=== PATIENT | male | born 1950 | race Caucasian/White ===

== ENCOUNTER 2018-05-24 11:45 | Inpatient (IN) | payer OTHER ==
[2018-05-24] MEDS: SOD CHLORIDE 0.9% 500 ML IV (12:46)
[2018-05-24] MEDS: PIPER-TAZO 3.375 GM IV (PMX) 100 ML IVPB ×2 (12:46→20:47)
[2018-05-24] MEDS: KETOROLAC 15 MG INJ IV (12:46)
[2018-05-24 12:57] LABS: ADD MAN DIFF? NO
[2018-05-24 13:05] LABS: WHITE BLOOD COUNT 12.6 10^3/ul (4.8-10.8)
[2018-05-24 13:05] LABS: BASOPHILS % 0.3 % (0.0-2.0); EOSINOPHILS # 0.2 10^3/ul (0.0-0.5); EOSINOPHILS % 1.2 % (0.0-7.0); HEMATOCRIT 38.7 % (42.0-52.0); HEMOGLOBIN 12.8 g/dl (14.0-18.0); LYMPHOCYTES % 16.3 % (15.0-51.0); MEAN CORPUSCULAR HEMOGLOBIN 28.6 pg (29.0-33.0); MEAN CORPUSCULAR HGB CONC 33.1 g/dl (32.0-37.0); MEAN CORPUSCULAR VOLUME 86.6 fl (82.0-101.0); MONOCYTE # 1.1 10^3/ul (0.3-0.9); MONOCYTES % 8.5 % (0.0-11.0); NEUTROPHIL # 9.2 10^3/ul (1.6-7.5); NEUTROPHILS % 73.4 % (39.0-77.0); PLATELET COUNT 335 10^3/UL (140-415); RED BLOOD COUNT 4.47 10^6/ul (4.70-6.10); RED CELL DISTRIBUTION WIDTH 12.5 % (11.5-14.5)
[2018-05-24 13:23] LABS: ALBUMIN 4.4 g/dl (3.3-4.9); ALBUMIN/GLOBULIN RATIO 1.12; ALKALINE PHOSPHATASE 108 IU/L (42-121); ANION GAP 9 (5-13); ASPARTATE AMINO TRANSFERASE 24 IU/L (15-46); BILIRUBIN,INDIRECT 0.4 mg/dl (0-1.1); BILIRUBIN,TOTAL 0.4 mg/dl (0.2-1.3); BLOOD UREA NITROGEN 22 mg/dl (7-20); CALCIUM 9.7 mg/dl (8.4-10.2); CARBON DIOXIDE 29 mmol/L (21-31); CHLORIDE 102 mmol/L (97-110); CREATININE 0.95 mg/dl (0.61-1.24); Estimated GFR > 60 mL/min (>60); GLUCOSE 247 mg/dl (70-220); LIPASE 138 U/L (23-300); SODIUM 140 mmol/L (135-144); TOTAL PROTEIN 8.3 g/dl (6.1-8.1)
[2018-05-24 13:24] LABS: ALANINE AMINOTRANSFERASE < 6 IU/L (13-69)
[2018-05-24 13:25] LABS: INR 1.02; PROTIME 13.5 Sec (11.9-14.9); PT RATIO 1.1
[2018-05-24 13:26] LABS: PARTIAL THROMBOPLASTIN TIME 40.3 Sec (23.0-35.0)
[2018-05-24] MEDS: VANCOMYCIN 1 GM (PMX) 250 ML IVPB (13:37)
[2018-05-24] MEDS ORDERED: NACL 0.9% 3 ML SYG IV (15:00)
[2018-05-24] MEDS ORDERED: GLUCAGON 1 MG INJ IM (15:30)
[2018-05-24] MEDS ORDERED: GLUCOSE GEL 15 GRAM TUBE BUCCAL (15:30)
[2018-05-24] MEDS ORDERED: DEXTROSE 50% 50 ML SYRINGE IV ×2 (15:30)
[2018-05-24] MEDS ORDERED: GLUCOSE GEL 15 GRAM TUBE PO ×2 (15:30)
[2018-05-24] MEDS ORDERED: VANCOMYCIN IV PER PHARMACY XX (16:30)
[2018-05-24 17:35] LABS: C-REACTIVE PROTEIN 6.8 mg/dl (0.0-0.9)
[2018-05-24] MEDS: VANCOMYCIN 1 GM 250 ML IVPB (18:01)
[2018-05-24 18:17] LABS: ERYTHROCYTE SEDIMENTATION RATE 59 mm/Hr (0-20)
[2018-05-24] MEDS: INSULIN ASPART [NOVOLOG] 3 ML PEN SC ×3 (18:51→21:00)
[2018-05-24] MEDS: GABAPENTIN 300 MG CAP PO (20:47)
[2018-05-24] MEDS: ATORVASTATIN 80 MG TAB PO (20:47)
[2018-05-24] MEDS: INSULIN GLARGINE [LANTus] (100 UNITS/ML) SYG SC (20:51)
[2018-05-25] MEDS: PIPER-TAZO 3.375 GM IV (PMX) 100 ML IVPB ×3 (02:49→22:35)
[2018-05-25 05:53] LABS: HEMOGLOBIN A1C 9.9 % (0-5.9)
[2018-05-25] MEDS: VANCOMYCIN HCL 1.25 GM in SOD CHLORIDE 0.9% 250 ML IVPB ×2 (06:56→17:52)
[2018-05-25] MEDS: INSULIN ASPART [NOVOLOG] 3 ML PEN SC ×7 (08:20→21:00)
[2018-05-25] MEDS: GABAPENTIN 300 MG CAP PO ×3 (09:51→21:11)
[2018-05-25] MEDS: ATORVASTATIN 80 MG TAB PO (21:11)
[2018-05-25] MEDS: INSULIN GLARGINE [LANTus] (100 UNITS/ML) SYG SC (21:17)
[2018-05-26] MEDS: PIPER-TAZO 3.375 GM IV (PMX) 100 ML IVPB ×3 (05:23→21:36)
[2018-05-26] MEDS: VANCOMYCIN HCL 1.25 GM in SOD CHLORIDE 0.9% 250 ML IVPB ×3 (06:31→22:37)
[2018-05-26 06:42] LABS: BLOOD UREA NITROGEN 19 mg/dl (7-20)
[2018-05-26 06:42] LABS: CREATININE 0.93 mg/dl (0.61-1.24)
[2018-05-26] MEDS: GABAPENTIN 300 MG CAP PO ×3 (08:07→21:36)
[2018-05-26] MEDS: INSULIN ASPART [NOVOLOG] 3 ML PEN SC ×7 (08:33→21:00)
[2018-05-26] MEDS: ATORVASTATIN 80 MG TAB PO (21:36)
[2018-05-26] MEDS: INSULIN GLARGINE [LANTus] (100 UNITS/ML) SYG SC (22:07)
[2018-05-27] MEDS: PIPER-TAZO 3.375 GM IV (PMX) 100 ML IVPB (05:45)
[2018-05-27] MEDS: INSULIN ASPART [NOVOLOG] 3 ML PEN SC ×6 (08:03→17:30)
[2018-05-27] MEDS: GABAPENTIN 300 MG CAP PO ×3 (08:04→21:13)
[2018-05-27] MEDS: VANCOMYCIN HCL 1.25 GM in SOD CHLORIDE 0.9% 250 ML IVPB (10:49)
[2018-05-27] MEDS: CEFTRIAXONE 1 GM/50 ML (PMX) 50 ML IVPB (11:23)
[2018-05-27] MEDS: HYDROCODONE/APAP (5/325) TAB PO (12:29)
[2018-05-27 16:43] LABS: ADD MAN DIFF? NO
[2018-05-27 16:47] LABS: BASOPHILS % 0.4 % (0.0-2.0); EOSINOPHILS # 0.3 10^3/ul (0.0-0.5); EOSINOPHILS % 2.9 % (0.0-7.0); HEMATOCRIT 38.3 % (42.0-52.0); HEMOGLOBIN 12.7 g/dl (14.0-18.0); LYMPHOCYTES # 2.2 10^3/ul (0.8-2.9); LYMPHOCYTES % 23.7 % (15.0-51.0); MEAN CORPUSCULAR HGB CONC 33.2 g/dl (32.0-37.0); MEAN CORPUSCULAR VOLUME 87.4 fl (82.0-101.0); MEAN PLATELET VOLUME 8.6 fl (7.4-10.4); MONOCYTE # 0.8 10^3/ul (0.3-0.9); MONOCYTES % 8.6 % (0.0-11.0); NEUTROPHIL # 5.9 10^3/ul (1.6-7.5); NEUTROPHILS % 64.2 % (39.0-77.0); PLATELET COUNT 383 10^3/UL (140-415); RED BLOOD COUNT 4.38 10^6/ul (4.70-6.10); RED CELL DISTRIBUTION WIDTH 12.3 % (11.5-14.5)
[2018-05-27 16:47] LABS: WHITE BLOOD COUNT 9.2 10^3/ul (4.8-10.8)
[2018-05-27 17:12] LABS: C-REACTIVE PROTEIN 5.6 mg/dl (0.0-0.9)
[2018-05-27 17:50] LABS: ERYTHROCYTE SEDIMENTATION RATE 76 mm/Hr (0-20)
[2018-05-27] MEDS: ATORVASTATIN 80 MG TAB PO (21:13)
== END 2018-05-27 21:20 | disposition home health service (06) | DRG 623 ==
LOC: 2NE 05-27 11:20 → E/R 11:45 → 2NE 15:36
PROC: 0JBR0ZZ Excision of Left Foot Subcutaneous Tissue and Fascia, Open Approach (ICD-10-PCS; principal; 2018-05-24)
DX: E11.621 Type 2 diabetes mellitus with foot ulcer (principal); E11.52 Type 2 diabetes mellitus with diabetic peripheral angiopathy with gangrene; I96 Gangrene, not elsewhere classified; M86.172 Other acute osteomyelitis, left ankle and foot; E11.42 Type 2 diabetes mellitus with diabetic polyneuropathy; E11.65 Type 2 diabetes mellitus with hyperglycemia; E11.628 Type 2 diabetes mellitus with other skin complications; E11.69 Type 2 diabetes mellitus with other specified complication; L03.032 Cellulitis of left toe; B95.1 Streptococcus, group B, as the cause of diseases classified elsewhere; L97.521 Non-pressure chronic ulcer of other part of left foot limited to breakdown of skin; E78.5 Hyperlipidemia, unspecified; Z79.4 Long term (current) use of insulin; Z79.82 Long term (current) use of aspirin
CPT/HCPCS: 36415; 73630-LT; 73718; 80053; 80202; 82565; 82962; 83036; 83690; 84520; 85025; 85610; 85651; 85730; 86140; 87040; 87070; 93922; 96374; 96375; 99285-25

== ENCOUNTER 2018-06-03 10:54 | Inpatient (IN) | payer OTHER ==
[2018-06-03] MEDS: SOD CHLORIDE 0.9% 500 ML IV (12:36)
[2018-06-03] MEDS: KETOROLAC 15 MG INJ IV (12:37)
[2018-06-03 12:43] LABS: ADD MAN DIFF? NO; BASOPHILS % 0.3 % (0.0-2.0); EOSINOPHILS # 0.2 10^3/ul (0.0-0.5); EOSINOPHILS % 2.3 % (0.0-7.0); HEMOGLOBIN 12.6 g/dl (14.0-18.0); LYMPHOCYTES # 1.6 10^3/ul (0.8-2.9); MEAN CORPUSCULAR HEMOGLOBIN 28.8 pg (29.0-33.0); MEAN CORPUSCULAR HGB CONC 33.2 g/dl (32.0-37.0); MEAN CORPUSCULAR VOLUME 86.8 fl (82.0-101.0); MEAN PLATELET VOLUME 8.7 fl (7.4-10.4); MONOCYTE # 0.8 10^3/ul (0.3-0.9); NEUTROPHIL # 6.3 10^3/ul (1.6-7.5); PLATELET COUNT 424 10^3/UL (140-415); RED BLOOD COUNT 4.38 10^6/ul (4.70-6.10); RED CELL DISTRIBUTION WIDTH 12.6 % (11.5-14.5)
[2018-06-03 13:01] LABS: ALBUMIN 4.4 g/dl (3.3-4.9); ALKALINE PHOSPHATASE 108 IU/L (42-121); ANION GAP 11 (5-13); ASPARTATE AMINO TRANSFERASE 31 IU/L (15-46); BILIRUBIN,INDIRECT 0.2 mg/dl (0-1.1); BILIRUBIN,TOTAL 0.2 mg/dl (0.2-1.3); BLOOD UREA NITROGEN 31 mg/dl (7-20); C-REACTIVE PROTEIN 2.9 mg/dl (0.0-0.9); CALCIUM 9.9 mg/dl (8.4-10.2); CARBON DIOXIDE 24 mmol/L (21-31); CHLORIDE 103 mmol/L (97-110); Estimated GFR 47 mL/min (>60); GLUCOSE 124 mg/dl (70-220); POTASSIUM 4.9 mmol/L (3.5-5.1); SODIUM 138 mmol/L (135-144); TOTAL PROTEIN 8.4 g/dl (6.1-8.1)
[2018-06-03 13:02] LABS: ALANINE AMINOTRANSFERASE < 6 IU/L (13-69)
[2018-06-03 13:03] LABS: INR 1.03; PROTIME 13.6 Sec (11.9-14.9); PT RATIO 1.1
[2018-06-03 13:04] LABS: PARTIAL THROMBOPLASTIN TIME 44.7 Sec (23.0-35.0)
[2018-06-03] MEDS: CEFTRIAXONE 1 GM/50 ML (PMX) 50 ML IVPB (13:10)
[2018-06-03 13:43] LABS: ERYTHROCYTE SEDIMENTATION RATE 96 mm/Hr (0-20)
[2018-06-03] MEDS ORDERED: ONDANSETRON 4 MG INJ IV ×2 (16:30→18:30)
[2018-06-03] MEDS ORDERED: ACETAMINOPHEN 325 MG TAB PO ×2 (16:30→18:30)
[2018-06-03] MEDS ORDERED: NACL 0.9% 3 ML SYG IV (18:30)
[2018-06-03] MEDS ORDERED: DOCUSATE SODIUM 100 MG CAP PO (18:30)
[2018-06-03] MEDS ORDERED: ZOLPIDEM 5 MG TAB PO (18:30)
[2018-06-03] MEDS ORDERED: GLUCOSE GEL 15 GRAM TUBE BUCCAL (19:00)
[2018-06-03] MEDS ORDERED: GLUCOSE GEL 15 GRAM TUBE PO ×2 (19:00)
[2018-06-03] MEDS ORDERED: DEXTROSE 50% 50 ML SYRINGE IV ×2 (19:00)
[2018-06-03] MEDS ORDERED: GLUCAGON 1 MG INJ IM (19:00)
[2018-06-03] MEDS: INSULIN ASPART [NOVOLOG] 3 ML PEN SC (21:00)
[2018-06-03] MEDS: ATORVASTATIN 80 MG TAB PO (21:01)
[2018-06-03] MEDS: SOD CHLORIDE 0.9% 1,000 ML IV (21:01)
[2018-06-03] MEDS: GABAPENTIN 300 MG CAP PO (21:01)
[2018-06-03] MEDS: morphine 2 MG INJ IV (21:01)
[2018-06-03] MEDS: HEPARIN 5,000 UNIT/1 ML VIAL SC (21:16)
[2018-06-03] MEDS: INSULIN GLARGINE [LANTus] (100 UNITS/ML) SYG SC (21:45)
[2018-06-04] MEDS: ACCU-CHEK XX (02:00)
[2018-06-04] MEDS: SOD CHLORIDE 0.9% 1,000 ML IV ×3 (06:19→18:21)
[2018-06-04 06:21] LABS: ADD MAN DIFF? NO
[2018-06-04 06:25] LABS: BASOPHILS % 0.5 % (0.0-2.0); EOSINOPHILS # 0.2 10^3/ul (0.0-0.5); EOSINOPHILS % 3.4 % (0.0-7.0); HEMATOCRIT 34.9 % (42.0-52.0); HEMOGLOBIN 11.5 g/dl (14.0-18.0); LYMPHOCYTES # 1.8 10^3/ul (0.8-2.9); LYMPHOCYTES % 28.3 % (15.0-51.0); MEAN CORPUSCULAR HEMOGLOBIN 28.9 pg (29.0-33.0); MEAN CORPUSCULAR VOLUME 87.7 fl (82.0-101.0); MEAN PLATELET VOLUME 8.8 fl (7.4-10.4); MONOCYTE # 0.7 10^3/ul (0.3-0.9); MONOCYTES % 11.1 % (0.0-11.0); NEUTROPHIL # 3.5 10^3/ul (1.6-7.5); NEUTROPHILS % 56.4 % (39.0-77.0); PLATELET COUNT 358 10^3/UL (140-415); RED BLOOD COUNT 3.98 10^6/ul (4.70-6.10); RED CELL DISTRIBUTION WIDTH 12.5 % (11.5-14.5)
[2018-06-04 06:25] LABS: WHITE BLOOD COUNT 6.2 10^3/ul (4.8-10.8)
[2018-06-04 06:52] LABS: ANION GAP 10 (5-13); BLOOD UREA NITROGEN 24 mg/dl (7-20); CARBON DIOXIDE 25 mmol/L (21-31); CHLORIDE 103 mmol/L (97-110); CREATININE 1.18 mg/dl (0.61-1.24); Estimated GFR > 60 mL/min (>60); GLUCOSE 130 mg/dl (70-220); MAGNESIUM 2.1 mg/dl (1.7-2.5); PHOSPHORUS 3.4 mg/dl (2.5-4.9); POTASSIUM 4.4 mmol/L (3.5-5.1); SODIUM 138 mmol/L (135-144)
[2018-06-04] MEDS: INSULIN ASPART [NOVOLOG] 3 ML PEN SC ×7 (08:00→20:42)
[2018-06-04] MEDS: GABAPENTIN 300 MG CAP PO ×3 (08:03→20:39)
[2018-06-04] MEDS: ASPIRIN 81 MG TAB PO (08:03)
[2018-06-04] MEDS: HEPARIN 5,000 UNIT/1 ML VIAL SC ×2 (08:05→20:41)
[2018-06-04] MEDS: SODIUM HYPOCHLORITE (1/40) 1 APPLIC BTL IRR (08:07)
[2018-06-04] MEDS: COLLAGENASE 5 GM (UD JAR) TOP (08:07)
[2018-06-04] MEDS: CEFTRIAXONE 1 GM/50 ML (PMX) 50 ML IVPB (13:14)
[2018-06-04] MEDS: ATORVASTATIN 80 MG TAB PO (20:39)
[2018-06-04] MEDS: INSULIN GLARGINE [LANTus] (100 UNITS/ML) SYG SC (20:40)
[2018-06-05] MEDS: SOD CHLORIDE 0.9% 1,000 ML IV ×4 (00:30→18:08)
[2018-06-05] MEDS: ACCU-CHEK XX (01:21)
[2018-06-05] MEDS: INSULIN ASPART [NOVOLOG] 3 ML PEN SC ×7 (08:00→20:35)
[2018-06-05] MEDS: ASPIRIN 81 MG TAB PO (08:05)
[2018-06-05] MEDS: GABAPENTIN 300 MG CAP PO ×3 (08:05→20:34)
[2018-06-05] MEDS: HEPARIN 5,000 UNIT/1 ML VIAL SC ×2 (08:09→20:40)
[2018-06-05] MEDS: CEFTRIAXONE 1 GM/50 ML (PMX) 50 ML IVPB (12:36)
[2018-06-05] MEDS: ATORVASTATIN 80 MG TAB PO (20:34)
[2018-06-05] MEDS: INSULIN GLARGINE [LANTus] (100 UNITS/ML) SYG SC (20:41)
[2018-06-06] MEDS: ACCU-CHEK XX (02:00)
[2018-06-06] MEDS: SOD CHLORIDE 0.9% 1,000 ML IV ×4 (04:55→20:57)
[2018-06-06] MEDS: INSULIN ASPART [NOVOLOG] 3 ML PEN SC ×7 (08:00→20:39)
[2018-06-06] MEDS: HEPARIN 5,000 UNIT/1 ML VIAL SC ×2 (08:18→20:42)
[2018-06-06] MEDS: GABAPENTIN 300 MG CAP PO ×3 (08:20→20:39)
[2018-06-06] MEDS: ASPIRIN 81 MG TAB PO (08:20)
[2018-06-06] MEDS: CEFTRIAXONE 1 GM/50 ML (PMX) 50 ML IVPB (12:30)
[2018-06-06] MEDS: INSULIN GLARGINE [LANTus] (100 UNITS/ML) SYG SC ×2 (20:00→21:12)
[2018-06-06] MEDS: HYDROCODONE/APAP (5/325) TAB PO (20:39)
[2018-06-06] MEDS: ATORVASTATIN 80 MG TAB PO (20:39)
[2018-06-07] MEDS: ACCU-CHEK XX (02:00)
[2018-06-07] MEDS: SOD CHLORIDE 0.9% 1,000 ML IV ×3 (02:30→22:30)
[2018-06-07] MEDS: INSULIN ASPART [NOVOLOG] 3 ML PEN SC ×6 (06:00→17:31)
[2018-06-07] MEDS ORDERED: LIDOCAINE 1% (MDV) 20 ML INJ (07:23)
[2018-06-07] MEDS ORDERED: HEPARIN 1000 UNITS/ML 10 ML INJ (07:23)
[2018-06-07] MEDS ORDERED: HEPARIN 1000 UNITS/NS (A-LINE) 1,000 ML (07:23)
[2018-06-07] MEDS ORDERED: IODIXANOL LOCM 100 ML BTL (07:23)
[2018-06-07] MEDS ORDERED: FENTAnyl 50 MCG/ML VIAL (07:24)
[2018-06-07] MEDS ORDERED: MIDAZOLAM 1 MG/ML 2 ML INJ (07:24)
[2018-06-07] MEDS ORDERED: SOD CHLORIDE 0.9% 500 ML (07:53)
[2018-06-07] MEDS: GABAPENTIN 300 MG CAP PO ×3 (09:44→20:43)
[2018-06-07] MEDS: ASPIRIN 81 MG TAB PO (09:44)
[2018-06-07] MEDS: HEPARIN 5,000 UNIT/1 ML VIAL SC ×2 (09:44→20:47)
[2018-06-07] MEDS: LACTATED RINGER'S 1,000 ML IV (10:14)
[2018-06-07] MEDS: CEFTRIAXONE 1 GM/50 ML (PMX) 50 ML IVPB (13:01)
[2018-06-07] MEDS ORDERED: INSULIN ASPART [NOVOLOG] 3 ML PEN SC (17:30)
[2018-06-07] MEDS: Insulin NOVOLOG SS MILD Algorithm (SS with meals and bedtime) SC ×2 (17:30→20:44)
[2018-06-07] MEDS: ATORVASTATIN 80 MG TAB PO (20:43)
[2018-06-07] MEDS: INSULIN GLARGINE [LANTus] (100 UNITS/ML) SYG SC (20:46)
[2018-06-08] MEDS: ACCU-CHEK XX (02:00)
[2018-06-08] MEDS: SOD CHLORIDE 0.9% 1,000 ML IV ×3 (06:11→17:42)
[2018-06-08 06:40] LABS: ADD MAN DIFF? NO
[2018-06-08 06:45] LABS: BASOPHILS % 0.5 % (0.0-2.0); EOSINOPHILS # 0.3 10^3/ul (0.0-0.5); EOSINOPHILS % 3.6 % (0.0-7.0); HEMATOCRIT 36.7 % (42.0-52.0); HEMOGLOBIN 12.1 g/dl (14.0-18.0); LYMPHOCYTES # 2.4 10^3/ul (0.8-2.9); LYMPHOCYTES % 29.4 % (15.0-51.0); MEAN CORPUSCULAR HEMOGLOBIN 28.8 pg (29.0-33.0); MEAN CORPUSCULAR VOLUME 87.4 fl (82.0-101.0); MEAN PLATELET VOLUME 8.9 fl (7.4-10.4); MONOCYTE # 0.7 10^3/ul (0.3-0.9); MONOCYTES % 8.2 % (0.0-11.0); NEUTROPHIL # 4.7 10^3/ul (1.6-7.5); NEUTROPHILS % 58.2 % (39.0-77.0); PLATELET COUNT 351 10^3/UL (140-415); RED CELL DISTRIBUTION WIDTH 12.5 % (11.5-14.5)
[2018-06-08 06:45] LABS: WHITE BLOOD COUNT 8.1 10^3/ul (4.8-10.8)
[2018-06-08] MEDS: Insulin NOVOLOG SS MILD Algorithm (SS with meals and bedtime) SC ×4 (07:00→20:47)
[2018-06-08 07:12] LABS: ANION GAP 13 (5-13); BLOOD UREA NITROGEN 18 mg/dl (7-20); CALCIUM 9.2 mg/dl (8.4-10.2); CARBON DIOXIDE 26 mmol/L (21-31); CHLORIDE 101 mmol/L (97-110); CREATININE 0.77 mg/dl (0.61-1.24); Estimated GFR > 60 mL/min (>60); GLUCOSE 151 mg/dl (70-220); POTASSIUM 4.1 mmol/L (3.5-5.1); SODIUM 140 mmol/L (135-144)
[2018-06-08] MEDS: INSULIN ASPART [NOVOLOG] 3 ML PEN SC ×3 (08:43→17:46)
[2018-06-08] MEDS: HEPARIN 5,000 UNIT/1 ML VIAL SC ×2 (08:45→20:48)
[2018-06-08] MEDS: GABAPENTIN 300 MG CAP PO ×3 (08:47→20:43)
[2018-06-08] MEDS: ASPIRIN 81 MG TAB PO (08:47)
[2018-06-08] MEDS: CEFTRIAXONE 1 GM/50 ML (PMX) 50 ML IVPB (13:16)
[2018-06-08] MEDS: HYDROCODONE/APAP (5/325) TAB PO ×2 (13:20→20:52)
[2018-06-08] MEDS: ATORVASTATIN 80 MG TAB PO (20:43)
[2018-06-08] MEDS: INSULIN GLARGINE [LANTus] (100 UNITS/ML) SYG SC (20:48)
[2018-06-09] MEDS: ACCU-CHEK XX (02:00)
[2018-06-09] MEDS: SOD CHLORIDE 0.9% 1,000 ML IV ×2 (03:39→15:08)
[2018-06-09] MEDS ORDERED: CEFAZOLIN 1 GM INJ (07:00)
[2018-06-09] MEDS ORDERED: LIDOCAINE 2% (SDV) 5 ML INJ (07:00)
[2018-06-09] MEDS ORDERED: SEVOFLURANE 15 MIN (07:00)
[2018-06-09] MEDS: ASPIRIN 81 MG TAB PO (07:39)
[2018-06-09] MEDS: INSULIN ASPART [NOVOLOG] 3 ML PEN SC ×3 (07:39→18:00)
[2018-06-09] MEDS: HEPARIN 5,000 UNIT/1 ML VIAL SC ×2 (07:40→19:48)
[2018-06-09] MEDS: GABAPENTIN 300 MG CAP PO ×3 (07:46→19:43)
[2018-06-09] MEDS: Insulin NOVOLOG SS MILD Algorithm (SS with meals and bedtime) SC ×4 (07:48→19:48)
[2018-06-09] MEDS: CEFTRIAXONE 1 GM/50 ML (PMX) 50 ML IVPB (12:01)
[2018-06-09] MEDS: HYDROCODONE/APAP (5/325) TAB PO (12:10)
[2018-06-09] MEDS ORDERED: FENTAnyl 50 MCG/ML VIAL (16:00)
[2018-06-09] MEDS ORDERED: MIDAZOLAM 1 MG/ML 2 ML INJ (16:00)
[2018-06-09] MEDS ORDERED: PROPOFOL 20 ML (16:01)
[2018-06-09] MEDS ORDERED: METOCLOPRAMIDE 10 MG INJ (16:02)
[2018-06-09] MEDS ORDERED: ROPIVACAINE 0.5 % 30 ML VIAL (16:03)
[2018-06-09] MEDS ORDERED: LORAZEPAM 2 MG INJ IV (16:30)
[2018-06-09] MEDS ORDERED: DIPHENHYDRAMINE 50 MG INJ IV (16:30)
[2018-06-09] MEDS ORDERED: ONDANSETRON 4 MG INJ IV (16:30)
[2018-06-09] MEDS ORDERED: MEPERIDINE 25 MG INJ IV (16:30)
[2018-06-09] MEDS ORDERED: IPRATROPIUM (NEB) 0.5 MG/2.5 ML AMP HHN (16:30)
[2018-06-09] MEDS ORDERED: LABETALOL HCL 20MG INJ IV (16:30)
[2018-06-09] MEDS ORDERED: FENTAnyl 50 MCG/ML VIAL IV ×2 (16:30)
[2018-06-09] MEDS ORDERED: hydrALAzine 20 MG INJ IV (16:30)
[2018-06-09] MEDS ORDERED: LEVALBUTEROL (NEB) 1.25 MG/0.5 ML AMP HHN (16:30)
[2018-06-09] MEDS ORDERED: HYDROmorphONE 1 MG/5 ML IV SYRINGE IV ×2 (16:30)
[2018-06-09] MEDS: ATORVASTATIN 80 MG TAB PO (19:43)
[2018-06-09] MEDS: INSULIN GLARGINE [LANTus] (100 UNITS/ML) SYG SC (19:44)
[2018-06-10] MEDS: SOD CHLORIDE 0.9% 1,000 ML IV ×4 (00:30→12:08)
[2018-06-10] MEDS: ACCU-CHEK XX (02:00)
[2018-06-10 05:37] LABS: ADD MAN DIFF? NO; BASOPHILS % 0.4 % (0.0-2.0); EOSINOPHILS # 0.2 10^3/ul (0.0-0.5); EOSINOPHILS % 2.7 % (0.0-7.0); HEMATOCRIT 37.5 % (42.0-52.0); HEMOGLOBIN 12.2 g/dl (14.0-18.0); LYMPHOCYTES # 1.8 10^3/ul (0.8-2.9); LYMPHOCYTES % 20.5 % (15.0-51.0); MEAN CORPUSCULAR HEMOGLOBIN 28.6 pg (29.0-33.0); MEAN CORPUSCULAR HGB CONC 32.5 g/dl (32.0-37.0); MEAN CORPUSCULAR VOLUME 87.8 fl (82.0-101.0); MEAN PLATELET VOLUME 8.8 fl (7.4-10.4); MONOCYTE # 0.6 10^3/ul (0.3-0.9); MONOCYTES % 6.5 % (0.0-11.0); NEUTROPHILS % 69.5 % (39.0-77.0); PLATELET COUNT 380 10^3/UL (140-415); RED BLOOD COUNT 4.27 10^6/ul (4.70-6.10); RED CELL DISTRIBUTION WIDTH 12.5 % (11.5-14.5)
[2018-06-10 05:37] LABS: WHITE BLOOD COUNT 8.6 10^3/ul (4.8-10.8)
[2018-06-10 06:04] LABS: ANION GAP 7 (5-13); BLOOD UREA NITROGEN 13 mg/dl (7-20); CALCIUM 9.2 mg/dl (8.4-10.2); CARBON DIOXIDE 29 mmol/L (21-31); CHLORIDE 104 mmol/L (97-110); Estimated GFR > 60 mL/min (>60); GLUCOSE 135 mg/dl (70-220); POTASSIUM 4.1 mmol/L (3.5-5.1); SODIUM 140 mmol/L (135-144)
[2018-06-10] MEDS: Insulin NOVOLOG SS MILD Algorithm (SS with meals and bedtime) SC ×4 (08:07→21:00)
[2018-06-10] MEDS: ASPIRIN 81 MG TAB PO (08:08)
[2018-06-10] MEDS: GABAPENTIN 300 MG CAP PO ×3 (08:08→21:01)
[2018-06-10] MEDS: INSULIN ASPART [NOVOLOG] 3 ML PEN SC ×3 (08:09→17:54)
[2018-06-10] MEDS: HEPARIN 5,000 UNIT/1 ML VIAL SC ×2 (08:10→21:03)
[2018-06-10] MEDS: HYDROCODONE/APAP (5/325) TAB PO ×2 (08:10→15:20)
[2018-06-10] MEDS: CEFTRIAXONE 1 GM/50 ML (PMX) 50 ML IVPB (12:04)
[2018-06-10] MEDS: NITROGLYCERIN 0.2 MG/HR PATCH TRANSDERM (15:49)
[2018-06-10] MEDS: ATORVASTATIN 80 MG TAB PO (21:01)
[2018-06-10] MEDS: INSULIN GLARGINE [LANTus] (100 UNITS/ML) SYG SC (21:03)
[2018-06-11] MEDS: ACCU-CHEK XX (02:00)
[2018-06-11] MEDS: HYDROCODONE/APAP (5/325) TAB PO (04:09)
[2018-06-11] MEDS: Insulin NOVOLOG SS MILD Algorithm (SS with meals and bedtime) SC ×2 (07:00→12:54)
[2018-06-11] MEDS: ASPIRIN 81 MG TAB PO (08:07)
[2018-06-11] MEDS: GABAPENTIN 300 MG CAP PO ×2 (08:07→13:07)
[2018-06-11] MEDS: NITROGLYCERIN 0.2 MG/HR PATCH TRANSDERM (08:07)
[2018-06-11] MEDS: HEPARIN 5,000 UNIT/1 ML VIAL SC (08:10)
[2018-06-11] MEDS: INSULIN ASPART [NOVOLOG] 3 ML PEN SC ×2 (08:10→12:54)
[2018-06-11] MEDS: morphine LIQ (10 MG/5 ML) CUP PO (08:23)
[2018-06-11] MEDS ORDERED: NITROGLYCERIN 0.2 MG/HR PATCH TRANSDERM (09:00)
[2018-06-11] MEDS: CEFTRIAXONE 1 GM/50 ML (PMX) 50 ML IVPB (13:00)
== END 2018-06-11 14:00 | disposition home or self-care (01) | DRG 617 ==
LOC: 2NE 06-08 15:10 → FTE 10:54 → 2NE 16:21
PROC: 0Y6Q0Z3 Detachment at Left 1st Toe, Low, Open Approach (ICD-10-PCS; principal; 2018-06-07 07:13)
PROC: B40D1ZZ Plain Radiography of Aorta and Bilateral Lower Extremity Arteries using Low Osmolar Contrast (ICD-10-PCS; 2018-06-07 07:13)
DX: E11.69 Type 2 diabetes mellitus with other specified complication (principal); E11.52 Type 2 diabetes mellitus with diabetic peripheral angiopathy with gangrene; I70.262 Atherosclerosis of native arteries of extremities with gangrene, left leg; M86.8X7 Other osteomyelitis, ankle and foot; N17.9 Acute kidney failure, unspecified; E11.621 Type 2 diabetes mellitus with foot ulcer; L97.529 Non-pressure chronic ulcer of other part of left foot with unspecified severity; E11.65 Type 2 diabetes mellitus with hyperglycemia; B95.1 Streptococcus, group B, as the cause of diseases classified elsewhere; E11.40 Type 2 diabetes mellitus with diabetic neuropathy, unspecified
CPT/HCPCS: 36246; 73630-LT; 75630; 75710; 76937; 80048; 80053; 82962; 83735; 84100; 85025; 85610; 85651; 85730; 86140; 87040; 87070; 87081; 87102; 88305; 88311; 96361; 96365; 96375; 99285-25; G0378